=== PATIENT | female | born 1975 | race Caucasian/White ===

== ENCOUNTER → 2016-10-20 | Outpatient (CLI) | payer BC ==
--- NOTE | ~2016-10-20 | NDGEN ---
PATIENT'S NAME: KEITH PERALES [facility] AGE: 41 Y [address] ROOM: [place] [address] LOCATION: [facility] ADMIT DATE: 10/20/2016 [facility] DISCHARGE DATE: FAMILY PHYSICIAN: ÓSCAR FLETCHER APRN ATTENDING PHYSICIAN: ÓSCAR FLETCHER PROCEDURE: NERVE CONDUCTION STUDY OF THE BILATERAL UPPER EXTREMITIES. DATE OF PROCEDURE: 10/20/2016 CLINICAL DIAGNOSIS: THIS IS A 41-YEAR-OLD FEMALE PATIENT WHO HAS HAD SYMPTOMS OF CARPAL TUNNEL SYNDROME, PROBABLY GOING BACK FOR FEW YEARS THAT INITIALLY STARTED WHEN SHE WAS . MOST RECENTLY, SHE HAD A BOUT OF NUMBNESS AGAIN INTO HER MEDIAN DISTRIBUTION OF BOTH HANDS, THOUGH IT SEEMS TO HAVE IMPROVED A BIT OVER THE PAST 2 WEEKS. NERVE CONDUCTION STUDIES WERE PERFORMED STIMULATING THE MEDIAN AND ULNAR MOTOR AND SENSORY NERVES. THE MEDIAN MOTOR NERVE SHOWED SOME BORDERLINE DELAY IN THE LEFT AND RIGHT MEDIAN NERVES AT THE WRIST, MUCH SLOWER AT THE LEFT WRIST; HOWEVER, AMPLITUDES WERE WELL PRESERVED, AND NERVE CONDUCTION VELOCITIES IN GENERAL REMAINED IN A NORMAL RANGE. THERE WAS SLOWER PEAK LATENCIES SEEN IN THE LEFT AND RIGHT SENSORY NERVES WELL ALSO AGAIN WORSE ON THE LEFT HAND. THE REST OF THE NERVE CONDUCTION STUDIES IN THE MOTOR, ULNAR, AND SENSORY NERVES WERE ALL WITHIN NORMAL LIMITS. IMPRESSION: There is likely mild to perhaps approaching moderate carpal tunnel syndrome in the bilateral upper extremities at the wrist, worse on the left hand. It is recommended that at first the patient try conservative therapy with the wrist immobilizers at bedtime as this may improve the motor onset latencies. As the amplitudes were well preserved, the nerve conduction velocities are normal presently. Also, recommend that the patient have a repeat nerve conduction study after this conservative therapy in approximately 6 months. MD SHIMON PALACIOS/socorro /[id number] dtt: 10/29/16 1741 KOBY JASON R. dtd: 10/20/16 1823
== END | disposition disaster alternative care site (69) ==
LOC: GNEU 15:00
DX: R20.2 Paresthesia of skin (principal); R20.0 Anesthesia of skin